=== PATIENT | female | born 1990 | race Caucasian/White ===

== ENCOUNTER 2016-06-26 21:32 | Emergency (ER) | payer OTHER ==
[~2016-06-26] VITALS: Ht 154.9 cm; Wt 54.4 kg
[2016-06-26 21:46] VITALS: BP 128/84
[2016-06-26] MEDS ORDERED: CRYSELLE-28 TA1 EACH PO (22:37)
[2016-06-26] MEDS ORDERED: PROAIR HFA8.5 GM INH (22:37)
--- NOTE | 2016-06-26 22:55 | ED ANIMAL BITE/WOUND CHECK ---
History of Present Illness General Chief Complaint: Animal/Insect Bite Stated Complaint: "CAT SCRATCH TO RIGHT EYE" PER PT Source: patient Exam Limitations: no limitations Vital Signs & Intake/Output Vital Signs & Intake/Output Vital Signs Date Time Temp Pulse Resp B/P Pulse O2 O2 Flow FiO2 Ox Delivery Rate 06/266 97.6 110 20 128/84 98 Room Air Allergies Coded Allergies: No Known Allergies (06/26/16) Reconcile Medications Albuterol Sulfate (Proair Hfa) 90 MCG HFA.AER.AD 2 PUF INH Q4-6 PRN PRN ASTHMA (Reported) Amoxicillin/Potassium Clav (Augmentin 875-125 Tablet) 875 MG-125 MG TABLET 1 TAB PO BID INFECTION Norgestrel-Ethinyl Estradiol (Cryselle-28 Tablet) 0.3 MG-30 MCG TABLET 1 TAB PO DAILY CONTROL (Reported) Triage Note: ATTACKED BY HER CAT MULTIPLE SCRATS (FACE LEGS ARMS ) LAST TETNUS ABOUT 2 YRS AGO Triage Nurses Notes Reviewed? yes Onset: Abrupt Duration: day(s): (1) Timing: single episode today Injury Environment: home Animal Type: cat Context of Animal Attack: provoked attack Appearance of Animal: appeared well Animal Immunization Status: up to date Severity of Attack: scratched Severity: moderate No Modifying Factors: none Associated Symptoms: scratches HPI: 25 female presents with cat scratches to multiple sites after being attacked by her cat at home. Cat is up to date with its vaccinations. Tetanus is up to date. Patient states that Past History Travel History Traveled to [place] past 21 day No Medical History Any Pertinent Medical History? see below for history Surgical History Surgical History: non-contributory Psychosocial History What is your primary language French Family History Hx Contributory? No Review of Systems Review of Systems Constitutional: Denies: chills, fever. EENTM: Reports: no symptoms. Respiratory: Denies: cough. Cardiovascular: Denies: chest pain, palpitations. GI: Reports: no symptoms. Genitourinary: Reports: no symptoms. Musculoskeletal: Reports: no symptoms. Skin: Reports: no symptoms. Neurological/Psychological: Denies: anxiety, numbness, tingling. Hematologic/Endocrine: Reports: bleeding. Denies: bruising, polyuria, polydipsia. Immunologic/Allergic: Denies: splenectomy. All Other Systems: Reviewed and Negative Physical Exam Physical Exam General Appearance: well developed/nourished, alert, awake, mild distress Head: atraumatic, SCRATCH ABOVE AND BELOW RIGHT EYE Eyes: Bilateral: PERRL, EOMI. Ears, Nose, Throat: normal pharynx, normal ENT inspection, hearing grossly normal Neck: normal inspection, supple Respiratory: normal breath sounds Cardiovascular: regular rate/rhythm Peripheral Pulses: 2+ radial (R), 2+ radial (L) Gastrointestinal: soft, non-tender Back: normal inspection Extremities: normal range of motion, SCRATCHES TO UPPER AND LOWER EXTREMITIES Neurologic/Psych: awake, alert, oriented x 3, normal mood/affect Skin: intact, normal color, warm/dry Lymphatic: no anterior cervical zakiya Progress Differential Diagnosis: CAT SCRATCH Plan of Care: Current Medications Sig/Vani Start time Last Medication Dose Stop Time Status Admin Amoxicillin/ 875 MG ONCE ONE 06/26 2299 CAN Clavulanate Potassium 06/26 2300 (Augmentin) Ibuprofen 600 MG ONCE ONE 06/26 2299 UNVr (Motrin) 06/26 2300 AUGMENTIN, IBUPROFEN ORDERED. TETANUS UTD. CAT UP TO DATE ON VACCINATIONS. (GUIDO ROY,ELDA) Departure Departure Time of Disposition: 2300 Disposition: HOME OR SELF CARE Condition: Stable Clinical Impression Primary Impression: Cat scratch of multiple sites Referrals: TY ROY,MARIUM (PCP/Family) Additional Instructions: Take the augment as directed and motrin as needed for pain. Topical antibiotic to the affected areas twice a day. Return as needed. Departure Forms: Customer Survey General Discharge Information Prescriptions: Current Visit Scripts Amoxicillin/Potassium Clav (Augmentin 875-125 Tablet) 1 TAB PO BID #20 TAB
[2016-06-26] MEDS ORDERED: AUGMENTIN 875-1 EACH PO (23:00)
== END 2016-06-26 23:27 ==
LOC: ERH 21:32
DX: S00.81XA Abrasion of other part of head, initial encounter (principal); S80.819A Abrasion, unspecified lower leg, initial encounter; S40.819A Abrasion of unspecified upper arm, initial encounter; W55.03XA Scratched by cat, initial encounter

== ENCOUNTER 2017-07-07 22:13 | Emergency (ER) | payer OTHER ==
[~2017-07-07] VITALS: Ht 154.9 cm; Wt 54.4 kg
[~2017-07-07 22:13] MED LIST: AUGMENTIN 875-1 EACH PO; CRYSELLE-28 TA1 EACH PO; PROAIR HFA8.5 GM INH
[2017-07-07 22:48] VITALS: BP 120/76
--- NOTE | 2017-07-08 | ED HAND/WRIST INJURY COMPLAINT ---
History of Present Illness General Chief Complaint: Laceration Procedure Stated Complaint: R THUMB LACERATION Source: patient Exam Limitations: no limitations Vital Signs & Intake/Output Vital Signs & Intake/Output Vital Signs Date Time Temp Pulse Resp B/P B/P Pulse O2 O2 Flow FiO2 Mean Ox Delivery Rate 07/07 2248 98.6 101 16 120/76 99 Room Air ED Intake and Output 07/08 0000 07/07 1200 Intake Total Output Total Balance Patient 120 lb Weight Weight Estimated Measurement Method Allergies Coded Allergies: No Known Allergies (06/26/16) Reconcile Medications Albuterol Sulfate (Proair Hfa) 90 MCG HFA.AER.AD 2 PUF INH Q4-6 PRN PRN ASTHMA (Reported) Amoxicillin/Potassium Clav (Augmentin 875-125 Tablet) 875 MG-125 MG TABLET 1 TAB PO BID INFECTION Norgestrel-Ethinyl Estradiol (Cryselle-28 Tablet) 0.3 MG-30 MCG TABLET 1 TAB PO DAILY CONTROL (Reported) Triage Note: RECEIVED 26 YO FEMALE C/O LACERATION TO RIGHT THUMB, 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 NO ACTIVE BLEEDING NOTED Triage Nurses Notes Reviewed? yes Occurred: just prior to arrival Duration: hour(s): (1), constant, continues in ED Timing: single episode today Injury Environment: home Severity: mild, moderate Severity Numbers: 6 Pain/Injury Location: Right: 1st finger. Context: laceration Method of Injury: laceration No Modifying Factors: none LMP (ages 10-50): unknown : No Patient currently breastfeeds: No HPI: 26-year-old female with no past medical history presents for evaluation of a laceration to her right thumb. Patient reports that about one hour before presentation she was cutting vegetables when she accidentally cut her thumb with a knife. She reports that there was some leading initially but she clean the area with peroxide and water. No numbness or tingling. The laceration is on long the distal aspect. No other injuries. She is unsure of her last tetanus shot. (John Pryor) Past History Travel History Traveled to [place] past 21 day No Medical History Any Pertinent Medical History? see below for history Neurological: NONE EENT: NONE Cardiovascular: NONE Respiratory: NONE Gastrointestinal: NONE Hepatic: NONE Renal: NONE Musculoskeletal: NONE Psychiatric: NONE Endocrine: NONE Blood Disorders: NONE Cancer(s): NONE ASSISTANT PARALEGAL/Reproductive: NONE Tetanus Vaccine: 07/07/17 Surgical History Surgical History: non-contributory Psychosocial History What is your primary language Polish Tobacco Use: Never used Family History Hx Contributory? No (John Pryor) Review of Systems Review of Systems Constitutional: Reports: no symptoms. EENTM: Reports: no symptoms. Respiratory: Reports: no symptoms. Cardiovascular: Reports: no symptoms. GI: Reports: no symptoms. Genitourinary: Reports: no symptoms. Musculoskeletal: Reports: no symptoms. Skin: Reports: see HPI (LACERATION). Neurological/Psychological: Reports: no symptoms. Hematologic/Endocrine: Reports: no symptoms. Immunologic/Allergic: Reports: no symptoms. All Other Systems: Reviewed and Negative (John Pryor) Physical Exam Physical Exam General Appearance: well developed/nourished, no apparent distress, alert, awake Head: atraumatic, normal appearance Eyes: Bilateral: normal appearance, EOMI. Ears, Nose, Throat: hearing grossly normal Neck: normal inspection, supple, full range of motion Cardiovascular/Respiratory: no respiratory distress Forearm Left: normal range of motion, normal inspection Forearm Right: normal range of motion, normal inspection Wrist Left: normal range of motion, normal inspection Wrist Right: normal range of motion, normal inspection Hand Left: normal inspection, normal range of motion Hand Right: normal range of motion, lacerations, 1st finger, THERE IS A SUPERFICIAL LINEAR 0.5 CM LACERATION LOCATED ALONG THE LATERAL ASPECT OF THE DISTAL SEGMENT OF THE THUMB. sMALL AMOUNT OF ACTIVE BLEEDING. nO DAMAGE TO THE NAIL. nO SQ TISSUE IS VISIBLE. fULL RANGE OF MOTION OF THUMB IS INTACT rEFILL LESS THAN 2 SECONDS. nEUROVASCULAR SUPPLY INTACT Neurologic/Tendon: normal sensation, normal motor functions, normal tendon functions, responds to pain, no evidence tendon injury Skin: intact, normal color, warm/dry (John Pryor) Progress Differential Diagnosis: contusion, dislocation, septic arthritis, sprain, tenosynovitis, LACERATION Plan of Care: Current Medications Sig/Vani Start time Last Medication Dose Stop Time Status Admin Tetanus/Diphtheria 0.5 ML ONCE ONE 07/07 2344 UNVr 07/07 Toxoids Adsorbed 07/07 2345 235 (Decavac) Patient seen and evaluated. She superficial laceration to the right thumb. The area was cleaned with Betadine and sterile water. Steri-Strips and Dermabond used to approximate the wound. Discussed wound care procedures in detail. Sterile dressing applied. [place] for signs of infection. Follow-up with primary care doctor in a few days for a wound check. Discussed return precautions patient appears well she agrees. Tetanus was updated. (John Pryor) Departure Departure Disposition: HOME OR SELF CARE Condition: Stable Clinical Impression Primary Impression: Thumb laceration Qualifiers: Encounter type: initial encounter Damage to nail status: without damage Foreign body presence: without foreign body Laterality: left Qualified Code: S61.012A - Laceration without foreign body of left thumb without damage to nail, initial encounter Referrals: Toña Schumacher MD (PCP/Family) Additional Instructions: Keep area clean and dry. Change dressing once daily. The glue and Steri-Strips absolute on their own in a few days. Look at the signs of infection like redness swelling discharge or pain. Tylenol Advil for pain. Follow-up with her primary care doctor in a few days for recheck. Monitor symptoms. Any concerns. Departure Forms: Customer Survey General Discharge Information (John Pryor) PA/PATIENT TRANSITION SPECIALIST Co-Sign Statement Statement: ED Attending supervision documentation- [] I saw and evaluated the patient. I have also reviewed all the pertinent lab results and diagnostic results. I agree with the findings and the plan of care as documented in the PA's/PATIENT TRANSITION SPECIALIST's documentation. [x] I have reviewed the ED Record and agree with the PA's/PATIENT TRANSITION SPECIALIST's documentation. [] Additions or exceptions (if any) to the PAs/PATIENT TRANSITION SPECIALIST's note and plan are summarized below: [] (Elin ROY,Tello Hightower) Procedures Laceration/Wound Repair Laceration/Wound Repair: Wound Location: upper extremity (RT THUMB) Wound's Depth, Shape: linear, superficial Wound Length (cm): 0.5 Wound Explored: clean, no foreign body removed, irrigated extensively Irrigated w/ Saline (ccs): 200 Betadine Prep? Yes Wound Debrided: minimal Wound Repaired With: Steri-strips, Dermabond Tetanus Status: not up to date (UPDATED TODAY) (John Pryor)
== END 2017-07-08 00:02 ==
LOC: ERH 22:13
DX: S61.011A Laceration without foreign body of right thumb without damage to nail, initial encounter (principal); W26.0XXA Contact with knife, initial encounter; Y92.009 Unspecified place in unspecified non-institutional (private) residence as the place of occurrence of the external cause; Y93.G1 Activity, food preparation and clean up
CPT/HCPCS: 90471

== ENCOUNTER 2017-07-18 10:31 | Emergency (ER) | payer OTHER ==
[~2017-07-18] VITALS: Ht 154.9 cm; Wt 54.0 kg
[2017-07-18] MEDS ORDERED: LEXAPRO10 M1 PO (10:59)
--- NOTE | 2017-07-18 11:00 | ED DYSPNEA/ASTHMA COMPLAINT ---
History of Present Illness General Chief Complaint: Wheezing/Asthma Stated Complaint: ASTHMA Source: patient Exam Limitations: no limitations Vital Signs & Intake/Output Vital Signs & Intake/Output Vital Signs Date Time Temp Pulse Resp B/P B/P Pulse O2 O2 Flow FiO2 Mean Ox Delivery Rate 07/18 1359 97.0 102 20 114/54 96 Room Air 07/18 1259 96 07/18 1138 99 Room Air 07/18 1130 98 07/18 1034 96.5 148 24 102/66 100 Room Air Room Air Allergies Coded Allergies: No Known Allergies (06/26/16) Reconcile Medications Albuterol Sulfate (Proair Hfa) 90 MCG HFA.AER.AD 2 PUF INH Q4-6 PRN PRN ASTHMA (Reported) Albuterol Sulfate (Ventolin Hfa) 90 MCG HFA.AER.AD 2 PUF INH Q4-6 PRN PRN SHORTNESS OF BREATH Benzonatate (Tessalon Perle) 100 MG CAPSULE 1 CAP PO TID PRN COUGH Codeine Phosphate/Guaifenesi (Cheratussin AC Syrup) 10 MG-100 MG/5 ML LIQUID 10 ML PO BID PRN COUGH Escitalopram Oxalate (Lexapro) (Unknown Strength) TABLET (Unknown Dose) PO DAILY MENTAL HEALTH (Reported) Norgestrel-Ethinyl Estradiol (Cryselle-28 Tablet) 0.3 MG-30 MCG TABLET 1 TAB PO DAILY CONTROL (Reported) Prednisone 10 MG TABLET 1 TAB PO AD INFLAMMATION DAY1/DAY2 FOUR TABS DAY3/DAY4 THREE TABS DAY5/DAY6 TWO TABS DAY 7 ONE TAB Triage Note: PT TO ED FROM DR NARVAEZ'S OFFICE WITH ASTHMA EXACERBATION, TOLD TO COME TO ED. O2 SAT 100%, HEART RATE 140'S, "TAKING INHALER WAY TOO MUCH". Triage Nurses Notes Reviewed? yes Onset: Gradual Duration: constant Timing: recent history Severity: severe : No Patient currently breastfeeds: No HPI: Patient is a 26-year-old female with a past medical history of asthma who presents emergency room with concerns of a gradual onset of yesterday nonproductive coughing and wheezing unrelieved with approximately 80 administrations of her Ventolin inhaler. Patient is complaining of shortness of breath denies any fevers chills sore throat ear pain chest pain nausea vomiting leg swelling hemoptysis. Past History Travel History Traveled to [place] past 21 day No Medical History Any Pertinent Medical History? see below for history Neurological: NONE EENT: NONE Cardiovascular: NONE Respiratory: asthma Gastrointestinal: NONE Hepatic: NONE Renal: NONE Musculoskeletal: NONE Psychiatric: NONE Endocrine: NONE Blood Disorders: NONE Cancer(s): NONE INCLUSION SPECIAL EDUCATOR/Reproductive: NONE Tetanus Vaccine: 07/07/17 Surgical History Surgical History: non-contributory Psychosocial History What is your primary language [place] Tobacco Use: Never used ETOH Use: occasional use Illicit Drug Use: denies illicit drug use Family History Hx Contributory? No Review of Systems Review of Systems Constitutional: Reports: no symptoms. EENTM: Reports: no symptoms. Respiratory: Reports: see HPI, short of breath, wheezing. Cardiovascular: Reports: no symptoms. GI: Reports: no symptoms. Genitourinary: Reports: no symptoms. Musculoskeletal: Reports: no symptoms. Skin: Reports: no symptoms. Neurological/Psychological: Reports: no symptoms. Hematologic/Endocrine: Reports: no symptoms. Immunologic/Allergic: Reports: no symptoms. All Other Systems: Reviewed and Negative Physical Exam Physical Exam General Appearance: no apparent distress, alert, comfortable Head: atraumatic Eyes: Bilateral: normal appearance. Ears, Nose, Throat: hearing grossly normal Neck: normal inspection Respiratory: chest non-tender, no respiratory distress, wheezing Cardiovascular: tachycardia Peripheral Pulses: 2+ radial (R) Gastrointestinal: normal bowel sounds, soft, non-tender Neurologic/Psych: no motor/sensory deficits, awake, alert Skin: intact, normal color, warm/dry Core Measures ACS in differential dx? No CVA/TIA Diagnosis No Sepsis Present: No Sepsis Focused Exam Completed? No Progress Differential Diagnosis: asthma, AMI, bronchitis, costochondritis, CHF, COPD, musculoskeletal pain, pericarditis, pulmonary embolism, pneumonia, pneumothorax, unstable angina Plan of Care: Orders Procedure Date/time Status TROPONIN LEVEL 07/18 111 Complete HUMAN BETA HCG SCREEN 07/18 1116 Complete D-DIMER 07/18 1116 Complete COMPREHENSIVE METABOLIC PANEL 07/18 1116 Complete CBC WITHOUT DIFFERENTIAL 07/18 1116 Complete EKG 07/18 1116 Active RAPID VIRAL INFLUENZA A 07/18 1111 Complete Current Medications Sig/Vani Start time Last Medication Dose Stop Time Status Admin Magnesium Sulfate 1 GM ONCE ONE 07/18 1300 AC 07/18 (Mag Sulfate in D5) 07/18 1659 1304 Dextrose/Water 100 ML (D5W) Laboratory Tests 07/18/17 1154: Anion Gap 15, Estimated GFR > 60, BUN/Creatinine Ratio 10.0, Glucose 104 H, Calcium 9.1, Total Bilirubin 0.9, AST 23, ALT 22, Alkaline Phosphatase 47, Troponin I < 0.01, Total Protein 7.7, Albumin 4.2, Globulin 3.5, Albumin/ Globulin Ratio 1.2, Total Beta HCG NEGATIVE, D-Dimer High Sensitivty < 200, CBC w Diff MAN DIFF ORDERED, RBC 4.42, MCV 82.2, MCH 27.9, MCHC 33.9, RDW 16.3 H, MPV 7.9, Gran % 86.2 H, Lymphocytes % 7.3 L, Monocytes % 5.3, Eosinophils % 0.8, Basophils % 0.4, Absolute Granulocytes 12.5 H, Absolute Lymphocytes 1.0 L , Absolute Monocytes 0.8 H, Absolute Eosinophils 0.1, Absolute Basophils 0.1, Platelet Estimate VERIFIED BY SMEAR, Anisocytosis 1+ Microbiology 07/18 1145 NASOPHARYN: Influenza Virus A & B Rapid Smear - COMP Patient on initial examination was noted to be anxious however patient has 100% room air oxygenation But due to the multiple dosings of Ventolin the patient also was noted to be tachycardic and patient currently is on an oral contraceptive in which d-dimer will BE evaluated 1248- repeat examination she still resting comfortable at bedside wheezing still exist repeat nebulizer and magnesium was ordered. No respiratory distress influenza was negative Patient was reexamined on multiple occasions and had significant improvement of wheezing. Patient was able to ambulate on hallway 95% oxygen saturation no respiratory distress Upon discharge patient looks well no apparent distress and will comply with discharge instructions and had no questions I reviewed all blood work and chest x-ray prior to discharge and EKG Diagnostic Imaging: Viewed by Me: Radiology Read. Radiology Impression: no acute abnormality Initial ED EKG: SINUS TACHYCARDIA 118 BPM Comments: PATIENT: MARIO ALBERTO SMITH PRESENT AGE: 26 PATIENT ACCOUNT NO: [id number] : 90 LOCATION: [facility] ORDERING PHYSICIAN: Glen BALES SERVICE DATE: 07/18/17-1111 EXAM TYPE: RAD - XRY-CHEST XRAY, TWO VIEWS EXAMINATION: XR CHEST CLINICAL INFORMATION: Wheezing. Shortness of breath. COMPARISON: None TECHNIQUE: 2 views of the chest were obtained. FINDINGS: Note is made of pectus excavatum. The cardiac size is normal. The mediastinal silhouette is normal. No abnormal tracheal deviation. Lungs are normally and symmetrically expanded. No focal consolidation, changes of congestion or pleural effusions. No pneumothorax. Regional skeleton is intact. Visualized upper abdomen is unremarkable. IMPRESSION: No acute pulmonary process. DICTATED BY: Connor Forrester MD DATE/TIME DICTATED:07/18/171357 MANAGER EMBALMER FUNERAL DIRECTOR:KAELA Departure Departure Disposition: HOME OR SELF CARE Condition: Stable Clinical Impression Primary Impression: Asthma attack Referrals: Toña Schumacher MD (PCP/Family) Additional Instructions: As discussed begin the prescription of Cheratussin Tessalon Perles for cough, begin the prescription of Ventolin for shortness of breath, and begin the prescription of prednisone tomorrow as you have received this medication in the emergency room today, prescriptions [facility] waiting [facility]. If symptoms worsen return to emergency room, follow-up with your primary care doctor on Sunday if no better Departure Forms: Customer Survey General Discharge Information Prescriptions: Current Visit Scripts Albuterol Sulfate (Ventolin Hfa) 2 PUF INH Q4-6 PRN PRN SHORTNESS OF BREATH #1 INHAL Prednisone 1 TAB PO AD #19 TAB DAY1/DAY2 FOUR TABS DAY3/DAY4 THREE TABS DAY5/DAY6 TWO TABS DAY 7 ONE TAB Codeine Phosphate/Guaifenesi (Cheratussin AC Syrup) 10 ML PO BID PRN COUGH #100 ML Benzonatate (Tessalon Perle) 1 CAP PO TID PRN COUGH #21 CAP Critical Care Note Critical Care Note Critical Care Time: non-applicable
[2017-07-18 12:11] LABS: ABSOLUTE BASOPHIL COUNT 0.1 /CUMM (0.0-0.2); ABSOLUTE EOSINOPHIL COUNT 0.1 /CUMM (0.0-0.7); ABSOLUTE GRANULOCYTE CT 12.5 /CUMM (1.4-6.5); ABSOLUTE MONOCYTE COUNT 0.8 /CUMM (0.10-0.60); BASOPHIL % 0.4 % (0.0-2.0); EOSINOPHIL % 0.8 % (0-5); GRANULOCYTE % 86.2 % (42.2-75.2); HEMATOCRIT 36.3 % (37-47); MEAN CORPUSCULAR HGB 27.9 PG (27.0-31.0); MEAN CORPUSCULAR HGB CONC 33.9 G/DL (33.0-37.0); MEAN CORPUSCULAR VOLUME 82.2 FL (81.0-99.0); MEAN PLATELET VOLUME 7.9 FL (7.4-10.4); PLATELET COUNT 311 /CUMM (130-400); RBC DISTRIBUTION WIDTH 16.3 % (11.5-14.5); RED BLOOD CELL CT 4.42 /CUMM (4.20-5.40); WHITE BLOOD CELL COUNT 14.5 /CUMM (4.8-10.8)
[2017-07-18 13:59] VITALS: BP 114/54
--- NOTE | 2017-07-18 14:04 | RADIOLOGY REPORT ---
EXAMINATION: XR CHEST CLINICAL INFORMATION: Wheezing. Shortness of breath. COMPARISON: None TECHNIQUE: 2 views of the chest were obtained. FINDINGS: Note is made of pectus excavatum. The cardiac size is normal. The mediastinal silhouette is normal. No abnormal tracheal deviation. Lungs are normally and symmetrically expanded. No focal consolidation, changes of congestion or pleural effusions. No pneumothorax. Regional skeleton is intact. Visualized upper abdomen is unremarkable. IMPRESSION: No acute pulmonary process.
[2017-07-18] MEDS ORDERED: CHERATUSSIN AC118 M1 PO (14:07)
[2017-07-18] MEDS ORDERED: TESSALON PERLE100 M1 PO (14:07)
[2017-07-18] MEDS ORDERED: PREDNISONE10 M2 PO (14:07)
[2017-07-18] MEDS ORDERED: VENTOLIN HFA18 GM INH (14:07)
== END 2017-07-18 14:54 ==
LOC: ERH 10:31
PROVIDERS: Physician Assistant
DX: J45.909 Unspecified asthma, uncomplicated (principal)
CPT/HCPCS: 1263; 71046; 87804; 87804-59; 93005; 93010; 96374; 96375; J2930

== ENCOUNTER → 2017-09-24 | Day surgery (SDC) | payer OTHER ==
[~2017-09-24] VITALS: Ht 154.9 cm; Wt 54.4 kg
[~2017-09-24] MED LIST changes: +CHERATUSSIN AC118 M1 PO; +LEXAPRO10 M1 PO; +PREDNISONE10 M2 PO; +TESSALON PERLE100 M1 PO; +VENTOLIN HFA18 GM INH
--- NOTE | 2017-09-24 10:20 | Operative Report ---
Operative/Inv Procedure Report Surgery Date: 09/24/17 Name of Procedure: Excision right tibial osteochondroma Pre-Operative Diagnosis: Large right proximal tibial osteochondroma Post-Operative Diagnosis: Same with final pathology pending Estimated Blood Loss: scant Surgeon/Vending Supervisor: Darinel ROY,Deangelo Alonso Anesthesia: laryngeal mask airway Drains: None Specimens: Large tibial mass Tourniquet: 29 minutes Complications: None Condition: Stable Operative Indication: Patient is a 26-year-old woman with a long history of enlarged mass in the right proximal tibia. She had increasing symptoms that necessitated further imaging. There was no evidence of transformation of the benign osteochondroma but was very large. The imaging was also done as a preoperative test since it was so large and close to the fibular neck and potentially the peroneal nerve. Patient wished to proceed with surgical excision of the mass. Risks benefits and expectations of the procedure were discussed which included but were not limited to persistent pain infection, injury to blood vessel or nerve especially due to the proximity of the peroneal nerve, anesthesia risks, recurrence, need for subsequent surgery. Operative/Procedure Note Note: Patient was brought to the operating room and transferred to the operating table for this surgery a skilled set of early childhood teacher assistant hands was necessary due to the size of the mass as well as proximity to vital structures. The early childhood teacher assistant was necessary for exposure purposes, retraction purposes, safe retraction of vital structures to facilitate removal of this large structure and tibial mass. The right lower extremity was prepped and draped in standard fashion. Preoperative IV antibiotic given prophylactically. The leg was elevated exsanguinated and tourniquet was inflated. A longitudinal incision was made centered over the proximal tibial mass which was just lateral to the proximal tibia. The incision was taken down bluntly over the top of this large mass. Layer by layer we were able to remove the soft tissues above the mass. Care was taken to stay directly over the mass and on the massive spelled especially at the base of the mass itself. Care was taken to avoid any excessive traction on this area or retraction by the skilled early childhood teacher assistant. The mass buttonholed through the tibialis anterior muscle. I peeled this muscle off to the side both anteriorly and posteriorly. Once the base was identified, it was determined that due to the size of the mass that I would take half of the anterior mass off first followed by the second half posterior mass. This also helped with decreasing the need for traction/retraction. Once the anterior half of the mass was removed, the base of the mass was clearly visible from the anterior aspect. I then used the osteotome to remove the posterior portion of the mass. I left a smooth base. Copious irrigation of the wound followed. After copious irrigation was completed I used bone wax due to the large surface area of the bone to minimize hematoma formation. After the wax was applied copious irrigation followed. The wax base remained over the exposed surface area of the bone. I then closed the fascia over the top of the base of the previous mass. The fascia itself was not tight with closure since this was also a concern. There was no tenting of this area. Due to the size of the mass the fascia itself was actually stretched quite a bit and therefore with closure there was no tension and there was no pressure on the compartment. Therefore there was minimal risk for compartment syndrome formation postop. Every level of closure was followed by copious irrigation. The the subcutaneous tissues closed with a 3-0 Vicryl suture with buried sutures. The skin was closed with a running nylon suture per progestins were applied and patient was awakened and taken the recovery room in good condition. No intraoperative complications. Blood loss was minimal tourniquet time 29 minutes Discharge Disposition: PACU
== END ==
LOC: STS 02:23 → EDSTATUS 07:00
DX: D16.21 Benign neoplasm of long bones of right lower limb (principal); J45.909 Unspecified asthma, uncomplicated
CPT/HCPCS: 81025; J0131; J0690; J1100; J1885; J2250; J2405